=== PATIENT | male | born 1980 | race Two or more races ===

== ENCOUNTER 2016-08-22 11:37 | Observation (INO) | payer SELFPAY ==
[2016-08-22] MEDS ORDERED: ACETAMINOPHEN 500 MG TABLET ONE (13:35)
--- NOTE | 2016-08-22 14:19 | RAD ---
CHEST 2 VIEWS HISTORY: Difficulty breathing, cough. Frontal and lateral chest radiographs dated 08/22/2016. COMPARISON: None. FINDINGS: FOCAL AIRSPACE OPACITY: Increased basilar opacity on lateral view. Coarsened bronchovascular markings. PLEURAL EFFUSION: None. CARDIOMEDIASTINAL SILHOUETTE: Nonenlarged. PNEUMOTHORAX: None identified. OSSEOUS STRUCTURES: No grossly destructive lesions. Upper lumbar disc degeneration. IMPRESSION: Lower lobe opacity on lateral view worrisome for pneumonia. Coarsened markings, which may reflect superimposed central airways disease, atypical/viral infection, or bronchitis.
[2016-08-22] MEDS ORDERED: CEFTRIAXONE 1 GRAM DUPLEX 50 ML IV ONE (15:07)
[2016-08-22] MEDS ORDERED: LACTATED RINGERS 1,000 ML ONE (15:08)
[2016-08-22] MEDS ORDERED: AZITHROMYCIN 500 MG VIAL ONE (15:14)
[2016-08-22] MEDS ORDERED: SODIUM CHLORIDE 0.9% 250 ML IV ONE ×2 (15:14→15:16)
[2016-08-22] MEDS ORDERED: AZITHROMYCIN 500 MG in SODIUM CHLORIDE 0.9% 250 ML IV SCH (15:30)
[2016-08-22 15:37] LABS: ABSOLUTE NEUTROPHIL COUNT 7.4 K/mm3 (1.8-7.7); BASO % 0.3 % (0.2-1.0); EOS % 0.3 % (0.9-2.9); HEMATOCRIT 38.8 % (32.0-52.0); HEMOGLOBIN 13.1 gm/l (14.0-18.0); IMM NEUT% 0.4 % (0-1); LYMPH # 1.7 (1.0-4.8); MEAN CELL VOLUME 84.7 fl (80.0-94.0); MEAN CORPUSCULAR HEMOGLOBIN 28.6 pg (27.0-31.0); MEAN CORPUSCULAR HGB CONC 33.8 g/dl (33.0-37.0); MEAN PLATELET VOLUME 9.5 fl (7.4-10.4); MONO # 0.6 (0.0-0.8); MONO % 6.6 % (4-12); NEUT % 75.4 % (43-75); PLATELET COUNT 459 K/mm3 (130-400); RED CELL DISTRIBUTION WIDTH 12.6 % (11.5-14.5)
[2016-08-22 16:21] VITALS: BMI 24.5
[2016-08-22 16:24] LABS: ALB/GLOB RATIO 0.7 (>1.0); ALBUMIN 3.4 gm/dL (3.5-5.7); CALCIUM 8.8 mg/dL (8.6-10.3)
[2016-08-22] MEDS ORDERED: SODIUM CHLORIDE 0.9% FLUSH 10 ML ONE (16:32)
[2016-08-22] MEDS: FLU VACC 2016-17 (36MO-64Y)/PF 60 MCG/0.5 ML SYRINGE IM V ONE (17:17)
[2016-08-22] MEDS ORDERED: SODIUM CHLORIDE 0.9% 100 ML IV PRN (18:02)
[2016-08-22] MEDS ORDERED: BLISTEX LIPSTICK 1 EACH TP PRN (18:02)
[2016-08-22] MEDS ORDERED: BISACODYL 10 MG SUP PR PRN (18:02)
[2016-08-22] MEDS ORDERED: MAGNESIUM HYDROXIDE 30 ML UDCUP PO PRN (18:02)
[2016-08-22] MEDS ORDERED: BISACODYL 5 MG TABLET.EC PO PRN (18:02)
[2016-08-22] MEDS ORDERED: MENTHOL/CETYLPYRD 1 EACH LOZENGE PO PRN (18:02)
[2016-08-22] MEDS ORDERED: ALBUTEROL NEB 2.5 MG/3 ML VIAL.NEB NEB PRN (18:04)
[2016-08-22] MEDS: SODIUM CHLORIDE 0.9% 1,000 ML IV SCH (19:20)
[2016-08-22] MEDS: ACETAMINOPHEN 325 MG TABLET PO PRN (19:44)
[2016-08-23] MEDS: ACETAMINOPHEN 325 MG TABLET PO PRN (01:24)
--- NOTE | 2016-08-23 02:42 | HP ---
GABRIEL FUENTES [id number] ADMIT DATE: 08/22/2016 CHIEF COMPLAINT: Cough and shortness of breath. HISTORY OF PRESENT ILLNESS: Gabriel is a 36-year-old male who is for the most part healthy. He has been ill for about the last month. In looking through the chart, he was seen in this clinic on 08/10/2016, diagnosed with pneumonia, and placed on amoxicillin. He was seen in our ER then three days later on 08/13/2016 and treated supportively with IV fluids and Tylenol. It was felt he most likely had a viral syndrome at that point. He never really has gotten better. He is followed-up then in our ER again today with continued cough, shortness of breath and maybe a low-grade fever. In the ER he was worked-up and found to have a possible retrocardiac infiltrate, and given the fact that he has been on antibiotics it is felt he may have a partially treated pneumonia that is not responding to outpatient treatment. He has a fever and was tachypneic in the ER, and it was elected to admit him to the Hospitalist Service for observation and continued treatment. REVIEW OF SYSTEMS: Otherwise negative. PAST MEDICAL HISTORY: None. PAST SURGICAL HISTORY: None. ALLERGIES: None. CURRENT MEDICATIONS: A recent course of amoxicillin, otherwise none. SOCIAL HISTORY: He is a construction superintendent/imcu specialist. He lives in [place]. No alcohol, tobacco or drug use. FAMILY HISTORY: Noncontributory. OBJECTIVE: VITAL SIGNS: Temperature 98.8. Pulse 88. Blood pressure 107/66. Respirations 20 and nonlabored. His O2 sat is 95% on room air. GENERAL: This is a well-developed and well-nourished young male. He is alert, calm and pleasant, in no distress. He feels much better now after having aggressive IV fluid rehydration in the ER. HEENT: Benign. TMs are clear. Oropharynx is moist. NECK: Supple. LUNGS: Clear. HEART: Regular. ABDOMEN: Soft. ASSESSMENT: Partially treated community-acquired pneumonia, presumed bacterial, versus bronchitis. PLAN: At this point he appears well after receiving aggressive fluid in the ER. Given his prolonged course, we will go ahead and treat him overnight and reevaluate in the morning. I anticipate in the morning we will be able to discharge him with a prescription for oral antibiotics and close outpatient follow-up. Blood cultures were drawn. Supportive care otherwise. DVT prophylaxis is not indicated, as the patient is fully ambulatory. I anticipate he will be the hospital less than 48 hours.
[2016-08-23] MEDS: SODIUM CHLORIDE 0.9% 1,000 ML IV SCH (02:51)
[2016-08-23 07:13] VITALS: BP 113/76
[2016-08-23] MEDS: FLU VACC 2016-17 (36MO-64Y)/PF 60 MCG/0.5 ML SYRINGE IM V ONE (10:59)
[2016-08-23] MEDS ORDERED: AZITHROMYCIN 500 MG in SODIUM CHLORIDE 0.9% 250 ML IV SCH ×2 (11:30→16:00)
--- NOTE | 2016-08-23 11:42 | DS ---
Gabriel Landry ADMIT DATE: 08/22/2016 DISCHARGE DATE: 08/23/2016 ADMISSION DIAGNOSIS: Community acquired pneumonia failing outpatient treatment, partially treated. DISCHARGE DIAGNOSIS: Community acquired pneumonia failing outpatient treatment, partially treated. ADMIT HISTORY AND PHYSICAL: Please see my dictated note for details. Briefly, Mr. Landry is a 36-year-old male who is for the most part healthy. He has had about a several week history of upper respiratory infection symptoms. On 08/10/2016 he was seen in his regular clinic and diagnosed with pneumonia and placed on amoxicillin. He was then seen three days later in our emergency room and told he had a viral syndrome and treated supportively. He never really got better. He finally presented to the emergency room on day of admission and was found to have evidence of a retrocardiac pneumonia on chest x-ray as well as continued upper respiratory infection symptoms, cough, fever, tachypnea, as well as borderline low O2 sats. We referred him to observation under the hospitalist service for continued treatment. HOSPITAL COURSE: He was admitted. We treated him with some IV fluid rehydration with marked improvement in his symptoms. He was started on Rocephin and azithromycin. Blood cultures were drawn and remained negative at time of discharge. By the morning of discharge he was feeling well and it was felt that he was safe to be discharged home with continued outpatient treatment and close outpatient follow up. DISCHARGE MEDICATIONS: 1. Cefuroxime 500 mg by mouth twice daily x7 more days. 2. Azithromycin 500 mg by mouth x1 on Saturday08/24/2016 to complete a 3 day course (he received first two doses while in the hospital). DISCHARGE FOLLOW UP: Will be at the [facility] in the next 1 to 2 weeks for a recheck. JOB: [id number] CC: [facility] in [place]
[2016-08-23] MEDS ORDERED: CEFTRIAXONE 1 GRAM DUPLEX 1 G in Premix (D5W) 50 ml 1 EACH IV SCH (15:30)
[2016-08-23] MEDS ORDERED: CEFUROXIME AXETIL 500 MG TABLET PO SCH ×2 (21:00)
[2016-08-24] MEDS ORDERED: AZITHROMYCIN 250 MG TABLET PO ONE (12:00)
[2016-08-24] MEDS ORDERED: AZITHROMYCIN 250 MG TABLET PO SCH (12:00)
== END 2016-08-23 13:10 | disposition home or self-care (01) ==
LOC: ED 11:37 → MS 15:01
PROVIDERS: ADMIT Family Medicine; ATTEND Family Medicine
PROC: 3E0234Z Introduction of Serum, Toxoid and Vaccine into Muscle, Percutaneous Approach (ICD-10-PCS; principal; 2016-08-22)
DX: J18.9 Pneumonia, unspecified organism (principal); Z23 Encounter for immunization
CPT/HCPCS: 90686; 85025; 87040; 80053; 71020; 87804; 96375; 99285 ×2; 96374; 90471; A9270 ×5; J0456 ×2; J7120; J7050 ×3; J7030 ×2; J0696